=== PATIENT | female | born 1985 | race Caucasian/White ===

== ENCOUNTER 2017-01-10 20:16 | Emergency (ER) | payer MEDICAID ==
[~2017-01-10] VITALS: Ht 162.6 cm; Wt 98.5 kg
[~2017-01-10 20:16] MED LIST: CALC-649 PO; FERR28TA PO; IBUP800T25 PO; PERCOCET PO; PNV1TABL43 PO
[2017-01-10 20:18] VITALS: Ht 162.6 cm; Wt 98.5 kg
--- NOTE | 2017-01-10 21:21 | ERD ---
ER Documentation Chief Complaint Date/Time DATE: 01/10/17 TIME: 21:19 Chief Complaint cough x 6 days and chest wall pain w/ back pain every cough episodes HPI This a 31-year-old female presents the emergency department today complaining of cough for the past 6 days, chest pressure and pain in her back with coughing. States the cough is worse at night. States she has tried Tylenol flu. Denies any fevers or chills, sore throat, runny nose. Denies prolonged, foreign travel, oral contraceptive use, cigarette smoking ROS All systems reviewed and are negative except as per history of present illness. Medications Home Meds Active Scripts Cetirizine Hcl* (Zyrtec*) 10 Mg Capsule, 10 MG PO DAILY, #14 TAB.CHEW Prov:GAMALIEL RYAN PA-C 01/10/17 Naproxen* (Naprosyn*) 500 Mg Tablet, 500 MG PO BID Y for PAIN AND/OR INFLAMMATION, #30 TAB Prov:GAMALIEL RYAN PA-C 01/10/17 Guaifenesin-Dextromethorphan* (Robitussin* DM) 100MG/10MG/5ML Syrup, 10 ML PO Q4H Y for COUGH for 5 Days, ML Prov:GAMALIEL RYAN PA-C 01/10/17 Oxycodone Hcl/Acetaminophen (Percocet) 1 Tab Tab, 2 TAB PO Q4H Y for PAIN LEVEL 6-10, #30 TAB 0 Refills Prov:CHAKA GATES MD 04/22/15 Ibuprofen* (Ibuprofen*) 800 Mg Tab, 800 MG PO Q8, #20 0 Refills Prov:CHAKA GATES MD 04/22/15 Reported Medications Ferrous Sulfate (Ferrous Sulfate) 1 Tab Tablet, 1 TAB PO DAILY 07/24/12 Calcium Carbonate (Calcium) 1 Tab Tablet, 1 TAB PO DAILY 07/24/12 Vit/Fe Fumarate/Fa* ( Vitamin Tablet*) 1 Tab Tablet, 1 TAB PO DAILY 07/24/12 Allergies Allergies: Coded Allergies: No Known Allergy (Unverified , 01/10/17) PMhx/Soc Medical and Surgical Hx: pt denies Medical Hx, pt denies Surgical Hx Hx Alcohol Use: No Hx Substance Use: No Hx Tobacco Use: No Smoking Status: Never smoker Physical Exam Vitals Vital Signs Date Time Temp Pulse Resp B/P Pulse Ox O2 Delivery O2 Flow Rate FiO2 01/10/17 20:18 99.2 65 20 143/91 98 Physical Exam Const: Laughing, no acute distress Head: Atraumatic Eyes: Normal Conjunctiva ENT: Normal External Ears, Nose and Mouth. Neck: Full range of motion..~ No meningismus. Resp: Clear to auscultation bilaterally. No absent breath sounds. No wheezing. Mild tenderness to palpation. Cardio: Regular rate and rhythm, no murmurs Skin: No petechiae or rashes Back: No midline or flank tenderness. No midline tenderness upper thoracic area Ext: No cyanosis, or edema Neur: Awake and alert Psych: Normal Mood and Affect Results 24 hrs Current Medications Medications (Trade) Dose Ordered Sig/Komal Route PRN Reason Start Time Stop Time Status Last Admin Dose Admin Ibuprofen (Motrin) 800 mg ONCE ONCE PO 01/10/17 21:30 01/10/17 21:31 DC 01/10/17 21:17 DIAGNOSTIC IMAGING REPORT Patient: LAM SCHULTE : 1985 Age: 31 Sex: F MR #: [id number] DOS: 01/10/17 0000 Ordering MD: GAMALIEL RYAN PA-C Location: [facility] Room/Bed: PROCEDURE: CHEST - 1 VIEW CLINICAL INDICATION: 31-year-old female with cough and chest pain. TECHNIQUE: A single frontal AP portable view of the chest was performed. The images were reviewed on a PACS workstation. COMPARISON: None. FINDINGS: The cardiomediastinal silhouette has a normal appearance. There is a shallow inspiration. There is no evidence for an infiltrate. The pulmonary vascularity is within normal limits. There is no evidence for pneumothorax or pneumomediastinum. The osseous structures are intact. IMPRESSION: No evidence for active cardiopulmonary disease. .Bandar Carpenter MD, Date Time Electronically viewed and signed by .Bandar Carpenter MD, on 01/10/2017 22:22 .M/ CC: GAMALIEL RYAN PA-C Procedures/MDM This a 31-year-old female who presents the emergency department today complaining of cough and chest wall pain and back pain for the past 6 days. Given patient's complaints of chest wall pain and back pain I did obtain a chest x-ray Chest x-ray shows no evidence for active cardiopulmonary disease. There is no infiltrate. No evidence for pneumothorax. Low suspicion for pneumonia, PE, abscess, pleural effusion, pneumothorax She is afebrile and otherwise well-appearing. She is not tachycardic and her oxygen saturations 98%. She is laughing in the exam room. She denies any oral contraceptive use, cigarette smoking or foreign or prolonged travel. Low suspicion for PE. Patient's lungs are clear on physical exam. Did not feel the patient required a breathing treatment. Do not feel the patient requires antibiotics at this time is I am low suspicion for bronchitis. Patient is not actively coughing. Patient given Motrin here in the emergency department. Patient symptoms at this time is consistent with cough and URI likely viral with chest wall and back pain secondary to cough. She will be given a prescription for Naprosyn, Robitussin, Zyrtec for home as her cough may be related to allergies given the cough is worse at night. At this time the patient is stable for discharge and outpatient management. Patient should follow up with their PCP in the next 1-2 days. They may return to the emergency department sooner for any persistent or worsening of symptoms. Patient understood and agreed with the plan. Departure Diagnosis: Primary Impression: Cough Condition: Fair GAMALIEL RYAN PA-C Jan 10, 2017 21:21
[2017-01-10] MEDS ORDERED: IBUPROFEN 800 MG TAB PO ONE (21:30)
--- NOTE | 2017-01-10 22:22 | RADRPT ---
PROCEDURE: CHEST - 1 VIEW CLINICAL INDICATION: 31-year-old female with cough and chest pain. TECHNIQUE: A single frontal AP portable view of the chest was performed. The images were reviewed on a PACS workstation. COMPARISON: None. FINDINGS: The cardiomediastinal silhouette has a normal appearance. There is a shallow inspiration. There is no evidence for an infiltrate. The pulmonary vascularity is within normal limits. There is no evide nce for pneumothorax or pneumomediastinum. The osseous structures are intact. IMPRESSION: No evidence for active cardiopulmonary disease. .Bandar Carpenter MD, Date Time Electronically viewed and signed by .Bandar Carpenter MD, on 01/10/2017 22:22 .[place]/
[2017-01-10] MEDS ORDERED: UDROBDM PO (22:57)
[2017-01-10] MEDS ORDERED: CETI10CA PO (22:57)
[2017-01-10] MEDS ORDERED: NAPR-260 PO (22:57)
[2017-01-10 23:05] VITALS: BP 124/86; PULSE 58; RESP 20; TEMP 99.2
== END 2017-01-10 23:05 | disposition home or self-care (01) ==
LOC: FTE 20:16
DX: R05 Cough (principal)
CPT/HCPCS: 71010; Z7502

== ENCOUNTER 2019-01-23 21:13 | Emergency (ER) | payer MEDICAID ==
[~2019-01-23] VITALS: Ht 152.4 cm; Wt 99.2 kg
[~2019-01-23 21:13] MED LIST changes: +CETI10CA PO; +GUAI5SYR2 PO; +IBUP-1542 PO; +IBUP-1544 PO; -IBUP800T25 PO; +NAPR-985 PO; +PANT40TA3 PO
[2019-01-23 21:16] VITALS: Ht 152.4 cm; Wt 99.2 kg
--- NOTE | 2019-01-23 21:21 | ERD ---
ER Documentation Chief Complaint Chief Complaint CP x 3 days HPI The patient is a 33-year-old female, presenting to the ER because of substernal chest discomfort for the last 3 days, intermittent, had similar symptoms previously. She was seen at [facility] few weeks ago for similar symptoms and had extensive work-up that was unremarkable. She denies chest pain with vomiting/radiation/exertion/diaphoresis, dyspnea, abdominal pain, vomiting, dysuria, diarrhea. She has intermittent cough for the last couple days, denies smoking, drinking, denies taking any OCP or recent traveling, denies any blood disorders in the family Past medical history: chronic low back pain Past surgical history: ROS All systems reviewed and are negative except as per history of present illness. Medications Home Meds Active Scripts Pantoprazole* (Protonix*) 40 Mg Tablet.dr, 40 MG PO DAILY, #20 TAB Prov:DEANNE LEMA MD 01/23/19 Ibuprofen* (Motrin*) 600 Mg Tab, 600 MG PO Q6H PRN for PAIN AND OR ELEVATED TEMP, #20 TAB Prov:DEANNE LEMA MD 01/23/19 Cetirizine Hcl* (Zyrtec*) 10 Mg Capsule, 10 MG PO DAILY, #14 TAB.CHEW Prov:GAMALIEL RYAN PA-C 01/10/17 Naproxen* (Naprosyn*) 500 Mg Tablet, 500 MG PO BID PRN for PAIN AND/OR INFLAMMATION, #30 TAB Prov:GAMALIEL RYAN PA-C 01/10/17 Guaifenesin-Dextromethorphan* (Robitussin* DM) 100MG/10MG/5ML Syrup, 10 ML PO Q4H PRN for COUGH for 5 Days, ML Prov:GAMALIEL RYAN PA-C 01/10/17 Oxycodone Hcl/Acetaminophen (Percocet) 1 Tab Tab, 2 TAB PO Q4H PRN for PAIN LEVEL 6-10, #30 TAB 0 Refills Prov:CHAKA GATES MD 04/22/15 Ibuprofen* (Ibuprofen*) 800 Mg Tab, 800 MG PO Q8, #20 0 Refills Prov:CHAKA GATES MD 04/22/15 Reported Medications Ferrous Sulfate (Ferrous Sulfate) 1 Tab Tablet, 1 TAB PO DAILY 07/24/12 Calcium Carbonate (Calcium) 1 Tab Tablet, 1 TAB PO DAILY 07/24/12 Vit/Fe Fumarate/Fa* ( Vitamin Tablet*) 1 Tab Tablet, 1 TAB PO DAILY 07/24/12 Allergies Allergies: Coded Allergies: No Known Allergy (Unverified , 01/10/17) PMhx/Soc Hx Alcohol Use: No Hx Substance Use: No Hx Tobacco Use: No Physical Exam Vitals Vital Signs Date Temp Pulse Resp B/P (MAP) Pulse Ox O2 O2 Flow FiO2 Time Delivery Rate 01/23/19 97.7 69 20 141/81 99 Room Air 23:38 (101) 01/23/19 97.7 66 20 153/84 99 21:16 (107) Physical Exam Const: No acute distress. Head: Atraumatic. Eyes: Normal Conjunctiva. ENT: Normal External Ears, Nose and Mouth. Neck: Full range of motion. No meningismus. Resp: Clear to auscultation bilaterally. Cardio: Regular rate and rhythm. Abd: Soft, non distended, normal bowel sounds, non tender. Skin: No petechiae or rashes. Back: No midline or flank tenderness. Ext: No cyanosis, or edema. Neur: Awake and alert. No focal deficit Psych: Normal Mood and Affect. Results 24 hrs Laboratory Tests Test 01/23/19 21:40 01/23/19 21:43 POC Beta HCG, Qualitative NEGATIVE Bedside Urine pH (LAB) 7.0 Bedside Urine Protein (LAB) Negative Bedside Urine Glucose (UA) Negative Bedside Urine Ketones (LAB) Negative Bedside Urine Blood Negative Bedside Urine Nitrite (LAB) Negative Bedside Urine Leukocyte Esterase (L Negative Current Medications Medications Dose Sig/Komal Start Time Status Last (Trade) Ordered Route PRN Stop Time Admin Dose Reason Admin Ketorolac 30 mg ONCE STAT 01/23/19 DC 01/23/19 Tromethamine IV 22:14 01/23/19 22:23 (Toradol) 22:17 Procedures/[place] [id number] Radiology Main Line: [phone] DIAGNOSTIC IMAGING REPORT Patient: LAM SCHULTE : 1985 Age: 33 Sex: F MR #: [id number] DOS: 01/23/192120 Ordering MD: DEANNE LEMA MD Location: E/R Room/Bed: PROCEDURE: XR Chest. CLINICAL INDICATION: Chest pain TECHNIQUE: Single portable view of the chest was obtained COMPARISON: No priors for comparison FINDINGS: The trachea is midline. The cardiac silhouette and pulmonary vascularity are within normal limits. The lungs are clear. The costophrenic angles are sharp. IMPRESSION: 1. No evidence of acute cardiopulmonary disease. RPTAT: AAPP Physician Emerson Date Time Electronically viewed and signed by Physician Emerson on 01/23/2019 21:34 JL/ CC: DEANNE LEMA MD [id number] EKG: Read by emergency physician Rate/Rhythm: Normal Sinus Rhythm 61 beats/min QRS, ST, T-waves: No ST elevation, no T inversion Impression: Normal EKG MEDICAL MAKING DECISION: The patient is a 33-year-old female, presenting with intermittent chest discomfort, treated with Toradol 30 mg IV for pain with good response, is stable for outpatient follow-up The differential diagnoses considered include but are not limited to acute coronary syndrome, acute myocardial infarction, pericarditis, pulmonary embolism, aortic dissection, pneumonia, pleural effusion, pneumothorax, GERD, chest wall pain. Departure Diagnosis: Primary Impression: Chest pain Condition: Good Comments She was discharged with Motrin and Protonix The patient's blood pressure was elevated (>120/80) but appears stable without evidence of hypertension emergency or urgency. The patient was counseled about the risks of hypertension and urged to pursue outpatient monitoring and therapy within a week with their primary care physician. I discussed the findings with the patient. I advised the patient to follow-up with the primary physician in about 1-2 days, sooner if needed and return if any concern. Disclaimer: Inadvertent spelling and grammatical errors are likely due to EHR/dictation software use and do not reflect on the overall quality of patient care. Also, please note that the electronic time recorded on this note does not necessarily reflect the actual time of the patient encounter. DEANNE LEMA MD Jan 23, 2019 21:21
[2019-01-23] MEDS ORDERED: KETOROLAC 30 MG INJ IV STA (22:14)
[2019-01-23 23:38] VITALS: BP 141/81; PULSE 69; RESP 20
== END 2019-01-23 23:39 | disposition home or self-care (01) ==
LOC: E/R 21:13
DX: R07.9 Chest pain, unspecified (principal)
CPT/HCPCS: 71045; 81003; 81025; 93005; 96374; J1885; Z7502